=== PATIENT | female | born 1985 | race Hispanic/Latino ===

== ENCOUNTER 2025-05-11 08:17 | Outpatient (CLI) | payer BC ==
[2025-05-11] MEDS ORDERED: Iopamidol 370 76% 100 ML VIAL ONE (11:54)
== END 2025-05-11 08:18 | disposition home or self-care (01) ==
LOC: CT 08:17
PROVIDERS: ATTEND Family Medicine
DX: R31.9 Hematuria, unspecified (principal)
CPT/HCPCS: 74178